=== PATIENT | male | born 1975 | race Caucasian/White ===

== ENCOUNTER 2017-04-16 18:38 | Emergency (ER) | payer OTHER ==
--- NOTE | 2017-04-16 18:56 | EDM.PDOC ---
ED HPI GENERAL MEDICAL PROBLEM - General Chief Complaint: Lower Extremity Injury/Pain Stated Complaint: PAIN RT ANKLE Time Seen by Provider: 04/16/17 18:45 - History of Present Illness INITIAL COMMENTS - FREE TEXT/NARRATIVE: HISTORY AND PHYSICAL: History of present illness: Patient 41-year-old male presented concern of acute right ankle injury this occurred when he rolled his ankle getting out of a car Review of systems: As per history of present illness and below otherwise all systems reviewed and negative. Past medical history: As per history of present illness and as reviewed below otherwise noncontributory. Surgical history: As per history of present illness and as reviewed below otherwise noncontributory. Social history: No reported history of drug or alcohol abuse. Family history: As per history of present illness and as reviewed below otherwise noncontributory. Physical exam: HEENT: Atraumatic, normocephalic, pupils reactive, negative for conjunctival pallor or scleral icterus, mucous membranes moist, throat clear, neck supple, nontender, trachea midline. Lungs: Clear to auscultation, breath sounds equal bilaterally, chest nontender. Heart: S1S2, regular, negative for clicks, rubs, or JVD. Abdomen: Soft, nondistended, nontender. Negative for masses or hepatosplenomegaly. Negative for costovertebral tenderness. Pelvis: Stable nontender. Genitourinary: Deferred. Rectal: Deferred. Extremities: Patient is some mild tenderness and swelling in the region of the lateral malleolus Achilles tendon is intact is no crepitation gross deformity point tenderness CMS and neurovascular exam are unremarkable Neuro: Awake, alert, oriented. Cranial nerves II through XII unremarkable. Cerebellum unremarkable. Motor and sensory unremarkable throughout. Exam nonfocal. Diagnostics: X-ray right ankle Therapeutics: Matt wrap crutches Impression: #1 acute ankle right injury Definitive disposition and diagnosis as appropriate pending reevaluation and review of above. - Related Data Allergies Allergy/AdvReac Type Severity Reaction Status Date / Time No Known Allergies Allergy Verified 04/16/17 18:46 Home Meds: Home Meds Acyclovir 400 mg PO BID 04/16/17 [History] Past Medical History - Past Health History Medical/Surgical History: Denies Medical/Surgical History - Infectious Disease History Infectious Disease History: Reports: Chicken Pox, Influenza, Measles Social & Family History - Tobacco Use Smoking Status *Q: Never Smoker Second Hand Smoke Exposure: No - Caffeine Use Caffeine Use: Reports: Tea - Recreational Drug Use Recreational Drug Use: No Review of Systems - Review of Systems Review Of Systems: ROS reveals no pertinent complaints other than HPI. ED EXAM, GENERAL - Physical Exam Exam: See Below (See dictation) Course - Orders/Labs/Meds Orders: Active Orders 24 hr Category Date Time Status Ankle Min 3V Rt [CR] Stat Exams 04/16/17 18:50 Ordered Departure - Departure Time of Disposition: 18:56 Disposition: Home, Self-Care 01 Condition: Good Clinical Impression: Ankle injury - Discharge Information Referrals: PCP,None [Primary Care Provider] - Additional Instructions: The following information is given to patients seen in the emergency department who are being discharged to home. This information is to outline your options for follow-up care. We provide all patients seen in our emergency department with a follow-up referral. The need for follow-up, as well as the timing and circumstances, are variable depending upon the specifics of your emergency department visit. If you don't have a primary care physician on staff, we will provide you with a referral. We always advise you to contact your personal physician following an emergency department visit to inform them of the circumstance of the visit and for follow-up with them and/or the need for any referrals to a consulting specialist. The emergency department will also refer you to a specialist when appropriate. This referral assures that you have the opportunity for followup care with a specialist. All of these measure are taken in an effort to provide you with optimal care, which includes your followup. Under all circumstances we always encourage you to contact your private physician who remains a resource for coordinating your care. When calling for followup care, please make the office aware that this follow-up is from your recent emergency room visit. If for any reason you are refused follow-up, please contact the [facility] emergency department at and asked to speak to the emergency department charge nurse. Matt wrap crutches as directed and Motrin/Tylenol directed follow-up primary medical doctor return as needed as discussed - My Orders Last 24 Hours: My Active Orders 04/16/17 18:50 Ankle Min 3V Rt [CR] Stat - Assessment/Plan Last 24 Hours: My Active Orders 04/16/17 18:50 Ankle Min 3V Rt [CR] Stat
--- NOTE | 2017-04-17 12:53 | CR ---
EXAM DATE: 04/16/17 PATIENT'S AGE: 41 Patient: BRIAN PAREDES Facility: [place], [place] Site . Site : 1975 Study: XRay Extremity Right ankle [id number]/[id number] 7:04:42 PM Ordering Physician: Rolly Matos Final Report: INDICATION: Twisting injury COMPARISON: none TECHNIQUE: Three-view right ankle FINDINGS: The bones are anatomically aligned. There is no evidence of fracture, erosion or intrinsic bone lesion. The soft tissues appear normal. IMPRESSION: No fracture identified. Dictated by Carlo Lee MD @ Apr 16 2017 7:45PM (Electronic Signature) Report Signed by Proxy. YESENIA
== END 2017-04-16 19:40 | disposition home or self-care (01) ==
LOC: MW.ED 18:38
DX: S99.911A Unspecified injury of right ankle, initial encounter (principal); X50.9XXA Other and unspecified overexertion or strenuous movements or postures, initial encounter
CPT/HCPCS: 73610-26-RT; 73610-RT; 99283

== ENCOUNTER 2017-04-26 15:00 | Emergency (ER) | payer OTHER ==
[2017-04-26] MEDS ORDERED: Sodium Chloride 0.9% 1,000 ML IV ONE (15:11)
[2017-04-26] MEDS ORDERED: Ketorolac 30 MG/ML SDV IVPUSH ONE (15:17)
--- NOTE | 2017-04-26 15:22 | EDM.PDOC ---
ED HPI GENERAL MEDICAL PROBLEM - General Chief Complaint: General Stated Complaint: BURRY VISION,HEADACHE, DIZZY Time Seen by Provider: 04/26/17 15:06 Source of Information: Reports: Patient History Limitations: Reports: No Limitations - History of Present Illness INITIAL COMMENTS - FREE TEXT/NARRATIVE: HISTORY AND PHYSICAL: History of present illness: Patient is a 41-year-old male who presents to the emergency room today with complaints of headache, blurred vision and dizziness since 4:30am this morning. He reports he "never has headaches" and expresses concern as he had fallen on . He was was evaluated in the emergency room for a rolled ankle as a result (did not complain of headache/head injury at that time). He believes he did hit his head without any loss of consciousness at that time. Any fever, chills, cough, chest pain or shortness of breath. Denies any abdominal pain, nausea, vomiting or diarrhea. Denies any drug or alcohol abuse. Review of systems: As per history of present illness and below otherwise all systems reviewed and negative. Past medical history: As per history of present illness and as reviewed below otherwise noncontributory. Surgical history: As per history of present illness and as reviewed below otherwise noncontributory. Social history: No reported history of drug or alcohol abuse. Family history: As per history of present illness and as reviewed below otherwise noncontributory. Physical exam: Neuro: Developed and well nourished 41-year-old male. Heart and oriented. Nontoxic appearing and in no acute distress. HEENT: Atraumatic, normocephalic, pupils reactive, negative for conjunctival pallor or scleral icterus, mucous membranes moist, throat clear, neck supple, nontender, trachea midline. No nuchal rigidity or meningeal sign. No drooling or trismus. Denies neck pain. Lungs: Clear to auscultation, breath sounds equal bilaterally, chest nontender. Heart: S1S2, regular, negative for clicks, rubs, or JVD. Abdomen: Soft, nondistended, nontender. Negative for masses or hepatosplenomegaly. Negative for costovertebral tenderness. Pelvis: Stable nontender. Genitourinary: Deferred. Rectal: Deferred. Extremities: Atraumatic, negative for cords or calf pain. Neurovascular unremarkable. Neuro: Awake, alert, oriented. Cranial nerves II through XII unremarkable. Cerebellum unremarkable. Motor and sensory unremarkable throughout. Exam nonfocal. Patient states he woke up this morning at 4:30 with headaches, blurred vision and dizziness. He states that he is concerned as "I never get headaches". He does recall falling on 04/18/2017 which does concern him. He denies any sinus symptoms, coughing or throat/ear pain. No evidence of ear infection. Patient is agreeable for some routine labs and head CT. We will give the patient IV fluid and Toradol at this time. Orthostatic vital signs are unremarkable. CBC and CMP are within normal limits. CT is normal with no acute findings. Negative flu. Patient reports that he does feel improved after receiving the IV fluids. We reviewed the labs and CT results. He states he will rest over the next 24 hours and drink plenty of fluids. Encouraged patient to follow up with his primary care provider in the next couple days. He voices understanding and is agreeable to plan of care. He denies any further questions at this time Diagnostics: CBC, CMP, orthostatic vital signs, head CT Therapeutics: IV fluid, Toradol Impression: Headache Dizziness Plan: 1. Lab work was normal today. Her head CT shows no acute findings. Please for the next 24 hours and plenty of fluids. 2. You may get meclizine [id number] and take as directed. This does open with dizziness. 3. If you continue to have dizziness please follow-up with her primary care provider or with an market research executive. Return to the ED as needed and as discussed. Definitive disposition and diagnosis as appropriate pending reevaluation and review of above. Onset: Today Duration: Hour(s): Location: Reports: Head, Generalized headache Pain Score (Numeric/FACES): 5 - Related Data Allergies Allergy/AdvReac Type Severity Reaction Status Date / Time No Known Allergies Allergy Verified 04/26/17 15:12 Home Meds: Home Meds Acyclovir 400 mg PO BID 04/16/17 [History] Past Medical History - Past Health History Medical/Surgical History: Denies Medical/Surgical History - Infectious Disease History Infectious Disease History: Reports: Herpes - Past Surgical History HEENT Surgical History: Reports: Other (See Below) Other HEENT Surgeries/Procedures: nasal surgery GI Surgical History: Reports: Appendectomy Social & Family History - Family History Family Medical History: Noncontributory - Tobacco Use Smoking Status *Q: Never Smoker Second Hand Smoke Exposure: No - Caffeine Use Caffeine Use: Reports: Tea - Recreational Drug Use Recreational Drug Use: No ED ROS GENERAL - Review of Systems Review Of Systems: ROS reveals no pertinent complaints other than HPI. ED EXAM, GENERAL - Physical Exam Exam: See Below (See dictation) Course - Vital Signs Last Recorded V/S: Last Vital Signs Temp 98.4 F 04/26/17 15:13 Pulse 77 04/26/17 15:13 Resp 18 04/26/17 15:13 BP 126/82 04/26/17 15:13 Pulse Ox 98 04/26/17 15:13 Orthostatic Blood Pressure [ 130/79 Standing] Orthostatic Blood Pressure [ 122/69 Sitting] Orthostatic Blood Pressure [ 113/62 Supine] - Orders/Labs/Meds Orders: Active Orders 24 hr Category Date Time Status EKG 12 Lead [EKG Documentation Completion] [RC] STAT Care 04/26/17 15:05 Active Orthostatic Vital Signs [RC] ASDIRECTED Care 04/26/17 15:05 Active Labs: Laboratory Tests 04/26/17 04/26/17 Range/Units 15:40 15:40 WBC 10.66 (4.0-11.0) K/uL RBC 5.15 (4.50-5.90) M/uL Hgb 16.3 (13.0-17.0) g/dL Hct 46.7 (38.0-50.0) % MCV 90.7 (80.0-98.0) fL MCH 31.7 (27.0-32.0) pg MCHC 34.9 (31.0-37.0) g/dL RDW Std Deviation 41.7 (28.0-62.0) fl RDW Coeff of Jessica 13 (11.0-15.0) % Plt Count 231 (150-400) K/uL MPV 10.70 (7.40-12.00) fL Neut % (Auto) 79.6 (48.0-80.0) % Lymph % (Auto) 14.4 L (16.0-40.0) % Iron % (Auto) 5.3 (0.0-15.0) % Eos % (Auto) 0.5 (0.0-7.0) % Baso % (Auto) 0.2 (0.0-1.5) % Neut # (Auto) 8.5 H (1.4-5.7) K/uL Lymph # (Auto) 1.5 (0.6-2.4) K/uL Iron # (Auto) 0.6 (0.0-0.8) K/uL Eos # (Auto) 0.1 (0.0-0.7) K/uL Baso # (Auto) 0.0 (0.0-0.1) K/uL Nucleated RBC % 0.0 /100WBC Nucleated RBCs # 0 K/uL Sodium 141 (136-146) mmol/L Potassium 3.7 (3.5-5.1) mmol/L Chloride 108 (98-110) mmol/L Carbon Dioxide 23 (21-31) mmol/L BUN 19 (6.0-23.0) mg/dL Creatinine 1.0 (0.6-1.5) mg/dL Est Cr Clr Drug Dosing 85.95 mL/min Estimated GFR (MDRD) > 60.0 ml/min Glucose 91 (60-110) mg/dL Calcium 9.9 (8.8-10.8) mg/dL Total Bilirubin 0.6 (0.1-1.5) mg/dL AST 22 (5-40) IU/L ALT 33 (8-54) IU/L Alkaline Phosphatase 59 (40-150) Total Protein 7.9 (6.0-8.0) g/dL Albumin 4.8 (3.5-5.0) g/dL Globulin 3.1 (2.0-3.5) g/dL Albumin/Globulin Ratio 1.5 (1.3-2.8) Meds: Medications Discontinued Medications Generic Name Dose Route Start Last Admin Trade Name Freq PRN Reason Stop Dose Admin Sodium Chloride 1,000 mls @ 999 mls/hr 04/26/17 15:11 04/26/17 15:45 Normal Saline IV 04/26/17 16:11 999 mls/hr STAT ONE Administration Ketorolac Tromethamine 30 mg 04/26/17 15:17 04/26/17 15:51 Toradol IVPUSH 04/26/17 15:18 30 mg ONETIME ONE Administration Departure - Departure Time of Disposition: 17:35 Disposition: Home, Self-Care 01 Clinical Impression: Dizziness Headache Qualifiers: Headache type: unspecified Headache chronicity pattern: acute headache Intractability: not intractable Qualified Code(s): R51 - Headache - Discharge Information Referrals: PCP,None [Primary Care Provider] - Forms: ED Department Discharge Additional Instructions: My general discharge The following information is given to patients seen in the emergency department who are being discharged to home. This information is to outline your options for follow-up care. We provide all patients seen in our emergency department with a follow-up referral. The need for follow-up, as well as the timing and circumstances, are variable depending upon the specifics of your emergency department visit. If you don't have a primary care physician on staff, we will provide you with a referral. We always advise you to contact your personal physician following an emergency department visit to inform them of the circumstance of the visit and for follow-up with them and/or the need for any referrals to a consulting specialist. The emergency department will also refer you to a specialist when appropriate. This referral assures that you have the opportunity for follow-up care with a specialist. All of these measure are taken in an effort to provide you with optimal care, which includes your follow-up. Under all circumstances we always encourage you to contact your private physician who remains a resource for coordinating your care. When calling for follow-up care, please make the office aware that this follow-up is from your recent emergency room visit. If for any reason you are refused follow-up, please contact the [facility] Emergency Department at and asked to speak to the emergency department charge nurse. [facility] [address] [place] [id number] 1. Lab work was normal today. Her head CT shows no acute findings. Please for the next 24 hours and plenty of fluids. 2. You may get meclizine [id number] and take as directed. This does open with dizziness. 3. If you continue to have dizziness please follow-up with her primary care provider or with an market research executive. Return to the ED as needed and as discussed. - My Orders Last 24 Hours: My Active Orders 04/26/17 15:05 EKG 12 Lead [EKG Documentation Completion] [RC] STAT Orthostatic Vital Signs [RC] ASDIRECTED - Assessment/Plan Last 24 Hours: My Active Orders 04/26/17 15:05 EKG 12 Lead [EKG Documentation Completion] [RC] STAT Orthostatic Vital Signs [RC] ASDIRECTED
--- NOTE | 2017-04-26 16:18 | CT ---
EXAMINATION: Non contrast CT head. Coronal and sagittal reformats. HISTORY: Pain FINDINGS: No evidence of intra or extra axial hemorrhage, mass, midline shift, hydrocephalus or edema. No hypoattenuation changes in the major vascular territories to suggest acute infarct. No abnormal intracranial calcifications are detected. No evidence of substantial vascular calcificat ions. Paranasal sinuses and mastoid air cells are well aerated without substantial findings. Orbits and gl obes are symmetric. Pituitary fossa appears unremarkable. Calvarium is intact. No evidence of skull fracture. IMPRESSION: No acute intracranial findings.
[2017-04-26 16:27] LABS: CHLORIDE,CL 108 mmol/L (98-110); SODIUM,NA 141 mmol/L (136-146)
== END 2017-04-26 18:18 | disposition home or self-care (01) ==
LOC: MW.ED 15:00
DX: R42 Dizziness and giddiness (principal); R51 Headache
CPT/HCPCS: 36415; 70450; 80053; 85025; 87804; 93005; 96361; 96374; 99284; J1885; J7040